=== PATIENT | female | born 1995 | race American Indian/Alaskan Native ===

== ENCOUNTER 2018-09-28 20:17 | Emergency (ER) | payer SELFPAY ==
--- NOTE | 2018-09-28 20:40 | Emergency Department Report ---
Blank Doc - Documentation Documentation: This is a 22-year-old female that presents with right axilla abscess. This initial assessment diagnostic orders/clinical plan/treatment(s) is/are subject to change based on patient's health status, clinical progression and re- assessment by fellow clinical providers in the ED. Further treatment and workup at subsequent clinical providers discretion. Patient/guardians urged not to elope from ED s their condition may be serious if not clinically assessed and managed. Initial orders include: 1-Patient sent to [facility] for further evaluation and treatment
--- NOTE | 2018-09-29 01:41 | Emergency Department Report ---
Abscess Boil HPI - HPI Chief Complaint: Skin/Abscess/Foreign Body Stated Complaint: PAINFUL KNOT UNDER RT ARM Time Seen by Provider: 09/28/18 20:39 Duration: 3 Days Location: Upper Extremity Severity: Moderate History: Yes Pain, Yes Purulent Drainage, No Fever, No Numbness, No Foreign Body, No Previous History, No Insect Bite HPI: This is a 22-year-old female that presents with right axilla abscess. recurrent for past yr, symptoms include pain drainage there is no fever chills n/v or riggers Home Medications: Previous Rx's Medication Instructions Recorded Last Taken Type Sulfamethoxazole/Trimethoprim 1 each PO BID 10 Days #20 tablet 09/29/18 Unknown Rx [Bactrim DS TAB] Tramadol HCl [Ultram] 50 mg PO Q6H #12 tablet 09/29/18 Unknown Rx Allergies/Adverse Reactions: Allergies Allergy/AdvReac Type Severity Reaction Status Date / Time No Known Allergies Allergy Unverified 09/28/18 20:19 ED Review of Systems ROS: Stated complaint: PAINFUL KNOT UNDER RT ARM Other details as noted in HPI Constitutional: denies: chills, fever Eyes: denies: eye pain, eye discharge, vision change ENT: denies: ear pain, throat pain Respiratory: denies: cough, shortness of breath, wheezing Cardiovascular: denies: chest pain, palpitations Endocrine: no symptoms reported Gastrointestinal: denies: abdominal pain, nausea, diarrhea Genitourinary: denies: urgency, dysuria, discharge Musculoskeletal: denies: back pain, joint swelling, arthralgia Skin: lesions (abscess right axillary ). denies: rash Neurological: denies: headache, weakness, paresthesias Psychiatric: denies: anxiety, depression Hematological/Lymphatic: denies: easy bleeding, easy bruising ED Past Medical Hx - Past Medical History Previous Medical History?: Yes Additional medical history: Sweat gland disease - Surgical History Past Surgical History?: No - Social History Smoking Status: Never Smoker Substance Use Type: None - Medications Home Medications: Home Medications Medication Instructions Recorded Confirmed Last Taken Type Sulfamethoxazole/Trimethoprim 1 each PO BID 10 Days #20 tablet 09/29/18 Unknown Rx [Bactrim DS TAB] Tramadol HCl [Ultram] 50 mg PO Q6H #12 tablet 09/29/18 Unknown Rx ED Abscess Boil Physical Exam - Exam General: Vital signs noted. No distress. Alert and acting appropriately. right axillary asbscess 1x1 cm erythema fluctuant pain to touch no fever Size: 1 cm Exam: Yes Tenderness, Yes Fluctuance, Yes Surrounding Cellulites/Erythema, Yes Normal Neurologic Exam, Yes Normal Circulation, No Lymphangitis, No Crepitation, No Heart Murmur I & D Note - I & D Note I & D Note: right a/c abscess 1x1 site cleaned with betadine solution anesthesia with 1% lidocaine plain x 2 cc, incision with 11 blade scapel, moderate purulent drainaged noted wound irrigated with 20 cc sterile saline, sterile dressing applied, all bleeding controlled pt given wound care instructions. pt verbalizeda agreement and understanding of same. ED Course Vital Signs 09/28/18 09/28/18 20:26 20:39 Temperature 98.4 F 98.4 F Pulse Rate 74 78 Respiratory 18 16 Rate Blood Pressure 112/68 112/68 O2 Sat by Pulse 100 100 Oximetry Critical care attestation.: If time is entered above; I have spent that time in minutes in the direct care of this critically ill patient, excluding procedure time. ED Medical Decision Making - Medical Decision Making right axillary abscess see Incision and drain procedure note all bleeding controlled pt tolerated procedure with minimal distress. will follow up with pcp in 2 days for wound check , will dc to home with rx for bactrim and ultram pt verbalized agreement and understanding of same. ED Disposition Clinical Impression: Abscess of right axilla Disposition: DC-01 TO HOME OR SELFCARE Is pt being admited?: No Does the pt Need Aspirin: No Condition: Stable Instructions: Abscess (ED) Prescriptions: Sulfamethoxazole/Trimethoprim [Bactrim DS TAB] 1 each PO BID 10 Days #20 tablet Tramadol HCl [Ultram] 50 mg PO Q6H #12 tablet Referrals: EDEN BYRNES MD [Primary Care Provider] - 3-5 Days Forms: Work/School Release Form(ED) Time of Disposition: 01:49
[2018-09-29 02:00] VITALS: BP 100/66
== END 2018-09-29 01:58 | disposition home or self-care (01) ==
LOC: ED 20:17
DX: L02.411 Cutaneous abscess of right axilla (principal)
CPT/HCPCS: 99282

== ENCOUNTER 2020-06-11 12:35 | Emergency (ER) | payer SELFPAY ==
[2020-06-11 12:47] VITALS: BP 105/65
--- NOTE | 2020-06-11 13:57 | Event Note ---
ED Screening Note ED Screening Note: a week right sided axillary abscess last time she had one was in Sep 2018 had a I&D in Sep 2018 no fever, no n/v/d, no chills, no drainage PMHx skin condition no allergies to meds LNMP: 05/08/2020, irregular cycles, denies possibility of This initial assessment/diagnostic orders/clinical plan/treatment(s) is/are subject to change based on patients health status, clinical progression and re- assessment by fellow clinical providers in the ED. Further treatment and workup at subsequent clinical providers discretion. Patient/guardian urged not to elope from the ED as their condition may be serious if not clinically assessed and managed. Initial orders include: eval for I&D
[2020-06-11] MEDS ORDERED: LIDOCAINE 1%/EPINEPHRINE 1:100,000 VIAL (20 ML) INFILTRATI ONE (15:39)
--- NOTE | 2020-06-11 15:39 | Emergency Department Report ---
Abscess Boil HPI - HPI Chief Complaint: Skin/Abscess/Foreign Body Stated Complaint: UNDER ARM SWELLING Time Seen by Provider: 06/11/20 13:54 Duration: 1 Week Location: Other (Right axilla) Severity: Moderate History: Yes Pain, Yes Previous History, No Fever, No Purulent Drainage, No Numbness, No Foreign Body, No Insect Bite HPI: 24-year-old female presents to the ER today with complaints of an abscess to her right axilla. She states that it started about 1 week ago and has been progressively getting worse. She denies any fever. She reports similar symptoms in the past, but she states that the last time she had a flareup was about 2019. She denies any known history of hidradenitis suppurativa. She denies any history of MRSA. She denies any history of diabetes or any immunocompromising illnesses. Home Medications: Previous Rx's Medication Instructions Recorded Last Taken Type Tramadol HCl [Ultram] 50 mg PO Q6H #12 tablet 09/29/18 Unknown Rx Acetaminophen/Codeine [Tylenol 1 tab PO Q6H PRN #15 tab 06/11/20 Unknown Rx /Codeine # 3 tab] Sulfamethoxazole/Trimethoprim 1 each PO BID 10 Days #20 tablet 06/11/20 Unknown Rx [Bactrim DS TAB] Allergies/Adverse Reactions: Allergies Allergy/AdvReac Type Severity Reaction Status Date / Time No Known Allergies Allergy Unverified 09/28/18 20:19 ED Review of Systems ROS: Stated complaint: UNDER ARM SWELLING Other details as noted in HPI Comment: All other systems reviewed and negative Constitutional: denies: chills, fever Respiratory: denies: cough, shortness of breath, wheezing Cardiovascular: denies: chest pain, palpitations Skin: other (Abscess, right axilla) ED Past Medical Hx - Past Medical History Previous Medical History?: Yes Additional medical history: Sweat gland disease - Social History Smoking Status: Never Smoker Substance Use Type: None - Medications Home Medications: Home Medications Medication Instructions Recorded Confirmed Last Taken Type Tramadol HCl [Ultram] 50 mg PO Q6H #12 tablet 09/29/18 Unknown Rx Acetaminophen/Codeine [Tylenol 1 tab PO Q6H PRN #15 tab 06/11/20 Unknown Rx /Codeine # 3 tab] Sulfamethoxazole/Trimethoprim 1 each PO BID 10 Days #20 tablet 06/11/20 Unknown Rx [Bactrim DS TAB] ED Abscess Boil Physical Exam - Exam General: Vital signs noted. No distress. Alert and acting appropriately. Size: 2 cm Exam: Yes Tenderness, Yes Fluctuance, Yes Lymphangitis, Yes Crepitation, Yes Normal Neurologic Exam, Yes Normal Circulation, No Surrounding Cellulites/Erythema, No Heart Murmur Exam: Approximately 2 cm x 2 cm indurated, fluctuant, mildly erythematous area noted to the right axilla. Moderate tenderness to palpation. No drainage. No significant cellulitis noted. No streaking. I & D Note - I & D Note I & D Note: location - right axillar. Anesthesia -- Lidocaine 1% with epi. Area cleansed with betadine. Incision made with 11 inch blade. Mod amt pus drained. area probbed and loculations broken up. Area irrigated with about 20cc NS. 1/4 inch packing placed and then dressing. Patient tolerated procedure will without complications ED Course Vital Signs 06/11/20 12:43 Temperature 98.8 F Pulse Rate 75 Respiratory 16 Rate Blood Pressure 105/65 [Right] O2 Sat by Pulse 98 Oximetry Critical care attestation.: If time is entered above; I have spent that time in minutes in the direct care of this critically ill patient, excluding procedure time. ED Disposition Clinical Impression: Abscess of axilla, right Disposition: DC-01 TO HOME OR SELFCARE Is pt being admited?: No Does the pt Need Aspirin: No Condition: Stable Instructions: Skin Abscess, Incision and Drainage, Care After Additional Instructions: Take antibiotics and pain medications as prescribed. Return to ED in 2 days for packing removal. Try not to remove packing before 2 days. You can change the dressing if it gets soiled. Return sooner to ED if anything changes or worsens. Prescriptions: Sulfamethoxazole/Trimethoprim [Bactrim DS TAB] 1 each PO BID 10 Days #20 tablet Acetaminophen/Codeine [Tylenol /Codeine # 3 tab] 1 tab PO Q6H PRN #15 tab PRN Reason: Pain , Severe (7-10) Referrals: PRIMARY CARE, [Primary Care Provider] - 3-5 Days Time of Disposition: 16:19
== END 2020-06-11 16:48 | disposition home or self-care (01) ==
LOC: ED 12:35
DX: L02.411 Cutaneous abscess of right axilla (principal); Z79.899 Other long term (current) drug therapy

== ENCOUNTER 2020-06-14 16:38 | Emergency (ER) | payer SELFPAY ==
[2020-06-14 16:42] VITALS: BP 110/87
--- NOTE | 2020-06-14 17:45 | Emergency Department Report ---
Suture/Staple Removal - HPI Chief Complaint: Wound/Laceration Stated Complaint: FOLLOW UP VISIT Time Seen by Provider: 06/14/20 17:36 When Sutures or Shobha Placed: 5-7 Days Ago Wound Location: Right axillary ED Review of Systems ROS: Stated complaint: FOLLOW UP VISIT Other details as noted in HPI Comment: All other systems reviewed and negative ED Past Medical Hx - Past Medical History Previous Medical History?: Yes Additional medical history: Sweat gland disease, I & D right axillary - Surgical History Past Surgical History?: No - Social History Smoking Status: Never Smoker Substance Use Type: None - Medications Home Medications: Home Medications Medication Instructions Recorded Confirmed Last Taken Type Tramadol HCl [Ultram] 50 mg PO Q6H #12 tablet 09/29/18 Unknown Rx Acetaminophen/Codeine [Tylenol 1 tab PO Q6H PRN #15 tab 06/11/20 Unknown Rx /Codeine # 3 tab] Sulfamethoxazole/Trimethoprim 1 each PO BID 10 Days #20 tablet 06/11/20 Unknown Rx [Bactrim DS TAB] Suture Removal Exam - Exam General: Vital signs noted. No distress. Alert and acting appropriately. Wound: No Pathologic Erythema, No Tenderness, No Drainage, No Pus, No Wound Dehiscence Other Systems: All other systems reviewed and are unremarkable. Right axillary ED Course Vital Signs 06/14/20 16:41 Temperature 98.2 F Pulse Rate 86 Respiratory 15 Rate Blood Pressure 110/87 O2 Sat by Pulse 100 Oximetry ED Recheck MDM - Differential Diagnosis Wound Recheck - Medical Decision Making 24-year-old -[place] female presents to the emergency room for follow-up wound check. Patient states that she came in on 05/11/[address] pierre of abscess of the right axillary. Patient states that she has been changing a bandage and taking her medications as prescribed. Patient denies any fever or chills. Critical care attestation.: If time is entered above; I have spent that time in minutes in the direct care of this critically ill patient, excluding procedure time. ED Disposition Clinical Impression: Admission for wound check of abscess Disposition: DC- TO HOME OR SELFCARE Is pt being admited?: No Does the pt Need Aspirin: No Condition: Stable Additional Instructions: Continue cleaning your right under arm with Dial antibacterial soap twice a day change your bandage twice a day complete your antibiotics and take ibuprofen or Tylenol for pain management. Referrals: [facility] [Provider Group] - 3-5 Days
== END 2020-06-14 17:53 | disposition home or self-care (01) ==
LOC: ED 16:38
DX: L02.411 Cutaneous abscess of right axilla (principal); Z51.89 Encounter for other specified aftercare; Z79.899 Other long term (current) drug therapy